=== PATIENT | male | born 1960 | race Caucasian/White ===

== ENCOUNTER 2017-01-10 16:24 | Emergency (ER) | payer SELFPAY ==
[~2017-01-10] VITALS: Ht 165.1 cm; Wt 77.0 kg
[2017-01-10 16:25] VITALS: BP 153/72; PULSE 77; RESP 15; TEMP 98.1; O2SAT 99
--- NOTE | 2017-01-10 16:47 | PD ---
HPI Chief Complaint: Psychiatric Symptoms Time Seen by Provider: 16:45 Travel History International Travel<30 days: No Contact w/Intl Traveler<30days: No Traveled to known affect area: No History of Present Illness HPI 56-year-old male presents to the emergency Department voluntarily for psychiatric evaluation. Patient states he has been feeling more and more depressed recently. He states that he is feeling suicidal. His plan is to jump out front of a car. He states he has similar feelings last year with a similar plan. He does state that he uses opiates that he buys off the street. He used Dilaudid this morning. He denies any attempt to kill himself at this time. Patient states he occasionally uses alcohol, but not daily. He denies any medical complaints at this time. [facility], [facility] Social History Alcohol Use: Yes Tobacco Use: Yes Substance Use: Yes (pills off street, used Dilaudid this AM) Allergies-Medications (Allergen,Severity, Reaction): Coded Allergies: No Known Allergies (Unverified , 01/10/17) Reported Meds & Prescriptions Reported Meds & Active Scripts Active No Active Prescriptions or Reported Medications Review of Systems Except as stated in HPI: all other systems reviewed are Neg Physical Exam Narrative GENERAL: Well-nourished, well-developed male patient, ambulatory. Afebrile. SKIN: Focused skin assessment warm/dry. HEAD: Normocephalic. Atraumatic. EYES: No scleral icterus. No injection or drainage. NECK: Supple, trachea midline. No JVD or lymphadenopathy. CARDIOVASCULAR: Regular rate and rhythm without murmurs, gallops, or rubs. RESPIRATORY: Breath sounds equal bilaterally. No accessory muscle use. Lungs sounds are clear to auscultation. GASTROINTESTINAL: Abdomen soft, non-tender, nondistended. MUSCULOSKELETAL: No cyanosis, or edema. PSYCHIATRIC: No delusional thought processes. No hallucinations. Data Data Last Documented VS Vital Signs Date Time Temp Pulse Resp B/P Pulse Ox O2 Delivery O2 Flow Rate FiO2 01/10/17 16:42 18 01/10/17 16:25 98.1 77 153/72 99 Orders Complete Blood Count With Diff (01/10/17 16:39) Comprehensive Metabolic Panel (01/10/17 16:39) Psych Screen (01/10/17 16:39) Drug Screen, Random Urine (01/10/17 16:39) Alcohol (Ethanol) (01/10/17 16:39) Salicylates (Aspirin) (01/10/17 16:39) Tylenol (Acetaminophen) (01/10/17 16:39) Labs Laboratory Tests Test 01/10/17 01/10/17 01/10/17 16:40 16:50 17:11 White Blood Count 4.8 TH/MM3 Red Blood Count 4.28 MIL/MM3 Hemoglobin 13.9 GM/DL Hematocrit 40.8 % Mean Corpuscular Volume 95.4 FL Mean Corpuscular Hemoglobin 32.5 PG Mean Corpuscular Hemoglobin 34.1 % Concent Red Cell Distribution Width 12.9 % Platelet Count 80 TH/MM3 Mean Platelet Volume 10.9 FL Neutrophils (%) (Auto) 70.5 % Lymphocytes (%) (Auto) 19.0 % Monocytes (%) (Auto) 8.6 % Eosinophils (%) (Auto) 1.3 % Basophils (%) (Auto) 0.6 % Neutrophils # (Auto) 3.4 TH/MM3 Lymphocytes # (Auto) 0.9 TH/MM3 Monocytes # (Auto) 0.4 TH/MM3 Eosinophils # (Auto) 0.1 TH/MM3 Basophils # (Auto) 0.0 TH/MM3 CBC Comment AUTO DIFF Differential Comment AUTO DIFF CONFIRMED Platelet Estimate LOW Platelet Morphology Comment ENLARGED Red Cell Morphology Comment NORMAL Sodium Level 132 MEQ/L Potassium Level 4.1 MEQ/L Chloride Level 97 MEQ/L Carbon Dioxide Level 28.8 MEQ/L Anion Gap 6 MEQ/L Blood Urea Nitrogen 11 MG/DL Creatinine 0.93 MG/DL Estimat Glomerular Filtration 85 ML/MIN Rate Random Glucose 92 MG/DL Calcium Level 8.8 MG/DL Total Bilirubin 0.9 MG/DL Aspartate Amino Transf 82 U/L (AST/SGOT) Alanine Aminotransferase 84 U/L (ALT/SGPT) Alkaline Phosphatase 126 U/L Total Protein 8.3 GM/DL Albumin 3.5 GM/DL Acetaminophen Level LESS THAN 2.0 MCG/ML Ethyl Alcohol Level 38 MG/DL Salicylates Level LESS THAN 1.7 MG/DL Urine Opiates Screen POS Urine Barbiturates Screen NEG Urine Amphetamines Screen NEG Urine Benzodiazepines Screen NEG Urine Cocaine Screen NEG Urine Cannabinoids Screen NEG MDM Medical Decision Making Medical Screen Exam Complete: Yes Emergency Medical Condition: Yes Medical Record Reviewed: Yes Differential Diagnosis Depression versus anxiety versus substance abuse versus suicidal ideation Narrative Course 56-year-old male presents to the emergency department for psychiatric evaluation stating that he is depressed and suicidal. He states this plan is to jump in front of a car. He has no medical complaints at this time. CBC, CMP , alcohol level, urine drug screen, salicylate level, Tylenol level are ordered and pending. Patient is placed under a Goldstein Act for suicidal ideation with plan. CBC shows low platelets at 80. CMP shows elevated liver enzymes, AST 82, ALT 84 , alkaline phosphatase 126. UDS is positive for opiates. Salicylate level is less than 1.7. Tylenol level is less than 2.0. Alcohol level is 38. Patient is medically cleared for psychiatric screening and disposition. Mental health screening discussed with the patient. Psychiatric screen ordered. Diagnosis Primary Impression: Depression Qualified Code: F32.9 - Depression, unspecified depression type Additional Impressions: Suicidal ideation Opiate abuse, continuous Additional Instructions: Patient is medically cleared for psychiatric screening and disposition. Scripts No Active Prescriptions or Reported Meds Condition: Tish Avila January 10, 2017 16:47
[2017-01-10 17:01] LABS: AUTOMATED NEUTROPHIL # 3.4 TH/MM3 (1.8-7.7); BASOPHIL % 0.6 % (0.0-2.0); EOSINOPHIL # 0.1 TH/MM3 (0-0.4); EOSINOPHIL % 1.3 % (0.0-4.0); HEMATOCRIT 40.8 % (39.0-51.0); LYMPHOCYTE # 0.9 TH/MM3 (1.0-4.8); MEAN CELL VOLUME 95.4 FL (80.0-100.0); MEAN CORPUSCULAR HEMOGLOBIN 32.5 PG (27.0-34.0); MEAN CORPUSCULAR HGB CONC 34.1 % (32.0-36.0); MONO % 8.6 % (0.0-8.0); NEUT % 70.5 % (16.0-70.0); PLATELET COUNT 80 TH/MM3 (150-450); RED BLOOD COUNT 4.28 MIL/MM3 (4.50-5.90); RED CELL DISTRIBUTION WIDTH 12.9 % (11.6-17.2); WHITE BLOOD COUNT 4.8 TH/MM3 (4.0-11.0)
[2017-01-10 17:07] LABS: HEMO FLAGS AUTO DIFF
[2017-01-10 17:22] LABS: ALT (GPT) 84 U/L (12-78); ANION GAP 6 MEQ/L (5-15); AST (GOT) 82 U/L (15-37); BICARBONATE 28.8 MEQ/L (21.0-32.0); BLOOD UREA NITROGEN 11 MG/DL (7-18); CHLORIDE 97 MEQ/L (98-107); GLOMERULAR FILTRATION RATE 85 ML/MIN (>89); POTASSIUM 4.1 MEQ/L (3.5-5.1); SODIUM (NA) 132 MEQ/L (136-145)
[2017-01-10 17:24] LABS: ALKALINE PHOSPHATASE 126 U/L (45-117); TOTAL BILIRUBIN ADULT 0.9 MG/DL (0.2-1.0)
[2017-01-10 17:25] LABS: PLATELET ESTIMATE SMEAR LOW (NORMAL); PLATELET MORPHOLOGY ENLARGED (NORMAL); SCAN/DIFF AUTO DIFF CONFIRMED
[2017-01-10 17:32] LABS: ACETAMINOPHEN LESS THAN 2.0 MCG/ML (10.0-30.0)
[2017-01-10 17:35] LABS: AMPHETAMINE, URINE NEG (NEG); BARBITURATES, URINE NEG (NEG); COCAINE, URINE NEG (NEG)
[2017-01-10 19:04] VITALS: BP 123/70; PULSE 70; RESP 18; O2SAT 98
[2017-01-10 23:17] VITALS: BP 140/76; PULSE 72; RESP 18; O2SAT 98
[2017-01-11 02:00] VITALS: BP 125/69; PULSE 65; RESP 17; O2SAT 99
[2017-01-11 10:25] VITALS: BP 139/74; PULSE 68; RESP 18
[2017-01-11] MEDS: ACETAMINOPHEN 500 MG CPLT PO ONE ×2 (13:59→14:55)
--- NOTE | 2017-01-11 16:35 | PD ---
History of Present Illness Chief Complaint: Psychiatric Symptoms Time Seen by Provider: 16:00 Travel History International Travel<30 Days: No Contact w/Intl Traveler<30days: No Known affected area: No Legal Status Legal Status: Goldstein Act Goldstein Act Signed By: DR PHOENIX History of Present Illness: 56-year-old gentleman who "fell off the wagon" approximately one week ago. Has a history of opiate abuse and began buying Dilaudid-HP on the street and using it. At this time the patient firmly denies that he truly wants to harm himself and admits that he did this as a manipulation to get treatment. Patient feels guilty about using opiates again and would like detox and rehabilitation. This physician does not find that he meets Goldstein act criteria and this facility is not a licensed detox/rehabilitation facility. This physician spoke with emergency department staff and psychiatry of sales office administrator Jose Zendejas. Patient 's Goldstein act is being lifted and he will be sent to [facility] tomorrow for possible admission and treatment. Patient is noted to have a mildly diminished platelet count but ED staff indicate it is not low enough to require transfusion. Finally, patient was Goldstein acted by Dr. Phoenix in [facility] without a psych screen. This physician does not find the Goldstein act criteria are appropriate as the patient voluntarily wants assistance with his drug abuse. PFSH Past Medical History Medical History: Denies Significant Hx Psychiatric History Psychiatric History Hx Psychiatric Treatment: HX OF DEPRESSION significant history of substance abuse. History of Inpatient Treatment: Yes Social History Hx Alcohol Use: Yes Hx Tobacco Use: Yes Hx Substance Use: Yes Substance Use Type: Alcohol, Marijuana, Nicotine/Cigarettes, Prescription Medications, Benzos (Valium,Xanax), Heroin, Cocaine, Huffing, Synth Opiates- Pain Pills Other Substances Used: IV DILAUDID Hx of Substance Use Treatment: Yes Allergies-Medications (Allergen,Severity, Reaction): Coded Allergies: No Known Allergies (Unverified , 01/10/17) Reported Meds & Prescriptions Reported Meds & Active Scripts Active No Active Prescriptions or Reported Medications Review of Systems Except as stated in HPI: all other systems reviewed are Neg Exam Alert: Yes [place]: Person, Place, Date, Situation Mood: Calm Affect: Appropriate, Euthymic Speech: Clear, Logical Eye Contact: Normal Memory Intact: Immediate, Recent, Remote Insight/Judgement Adequate except when it comes to drugs. MDM Medical Decision Making Medical Record Reviewed: Yes Assessment/Plan Discharge in a.m. to [facility]. Orders Complete Blood Count With Diff (01/10/17 16:39) Comprehensive Metabolic Panel (01/10/17 16:39) Psych Screen (01/10/17 16:39) Drug Screen, Random Urine (01/10/17 16:39) Alcohol (Ethanol) (01/10/17 16:39) Salicylates (Aspirin) (01/10/17 16:39) Tylenol (Acetaminophen) (01/10/17 16:39) Diet Regular Basic (01/11/17 Breakfast) Diet Regular Basic (01/11/17 Lunch) Acetaminophen (Tylenol) (01/11/17 13:45) Results Vital Signs Date Time Temp Pulse Resp B/P Pulse Ox O2 Delivery O2 Flow Rate FiO2 01/11/17 10:25 68 18 139/74 Room Air 01/11/17 02:00 65 17 125/69 99 Room Air 01/10/17 23:17 72 18 140/76 98 01/10/17 19:04 70 18 123/70 98 Room Air 01/10/17 16:42 18 Laboratory Tests Test 01/10/17 01/10/17 01/10/17 16:40 16:50 17:11 White Blood Count 4.8 Red Blood Count 4.28 Hemoglobin 13.9 Hematocrit 40.8 Mean Corpuscular Volume 95.4 Mean Corpuscular Hemoglobin 32.5 Mean Corpuscular Hemoglobin 34.1 Concent Red Cell Distribution Width 12.9 Platelet Count 80 Mean Platelet Volume 10.9 Neutrophils (%) (Auto) 70.5 Lymphocytes (%) (Auto) 19.0 Monocytes (%) (Auto) 8.6 Eosinophils (%) (Auto) 1.3 Basophils (%) (Auto) 0.6 Neutrophils # (Auto) 3.4 Lymphocytes # (Auto) 0.9 Monocytes # (Auto) 0.4 Eosinophils # (Auto) 0.1 Basophils # (Auto) 0.0 CBC Comment AUTO DIFF Differential Comment AUTO DIFF CONFIRMED Platelet Estimate LOW Platelet Morphology Comment ENLARGED Red Cell Morphology Comment NORMAL Sodium Level 132 Potassium Level 4.1 Chloride Level 97 Carbon Dioxide Level 28.8 Anion Gap 6 Blood Urea Nitrogen 11 Creatinine 0.93 Estimat Glomerular Filtration 85 Rate Random Glucose 92 Calcium Level 8.8 Total Bilirubin 0.9 Aspartate Amino Transf 82 (AST/SGOT) Alanine Aminotransferase 84 (ALT/SGPT) Alkaline Phosphatase 126 Total Protein 8.3 Albumin 3.5 Acetaminophen Level LESS THAN 2.0 Ethyl Alcohol Level 38 Salicylates Level LESS THAN 1.7 Urine Opiates Screen POS Urine Barbiturates Screen NEG Urine Amphetamines Screen NEG Urine Benzodiazepines Screen NEG Urine Cocaine Screen NEG Urine Cannabinoids Screen NEG Diagnosis Primary Impression: Opiate abuse, continuous Additional Impression: Suicidal ideation Additional Instructions: Patient is medically cleared for psychiatric screening and disposition. Prescriptions No Active Prescriptions or Reported Meds Condition: Stable Problem Qualifiers Javier Gaxiola MD January 11, 2017 16:35
[2017-01-11 22:00] VITALS: BP 127/86; PULSE 61; RESP 17; O2SAT 96
[2017-01-12] MEDS ORDERED: diphenhydrAMINE HCL 50 MG CAP PO ONE (01:15)
[2017-01-12 02:19] VITALS: BP 132/69; PULSE 61; RESP 17; O2SAT 99
[2017-01-12 06:00] VITALS: BP 115/68; PULSE 67; RESP 18; O2SAT 98
== END 2017-01-12 09:16 ==
LOC: NEPC 16:24 → NEPJ 01-12 09:16
DX: F11.10 Opioid abuse, uncomplicated (principal); F32.9 Major depressive disorder, single episode, unspecified; R74.8 Abnormal levels of other serum enzymes; D69.6 Thrombocytopenia, unspecified; Z72.0 Tobacco use
CPT/HCPCS: 80053; 80307; 85025; 99285; Q0163

== ENCOUNTER 2017-08-27 12:29 | Emergency (ER) | payer SELFPAY ==
[~2017-08-27] VITALS: Ht 167.6 cm; Wt 81.5 kg
[2017-08-27 12:31] VITALS: BP 143/81; PULSE 68; RESP 16; TEMP 98.6; O2SAT 99
--- NOTE | 2017-08-27 13:30 | PD ---
HPI Chief Complaint: Headache Time Seen by Provider: 13:17 Travel History International Travel<30 days: No Contact w/Intl Traveler<30days: No Traveled to known affect area: No History of Present Illness HPI 57-year-old male presents to emergency Department with complaint of traumatic bilateral frontal headache 2 weeks. Denies history of headaches. Has been gradual onset. Denies confusion, disorientation, change in mentation, slurred speech, focal deficits or weakness. Denies nasal congestion, ear pain, cough, sore throat. No fevers, vomiting. Rates the headache as a pressure. Takes Advil with relief of headache. Took Advil prior to arrival. Headache was 8/10 prior to taking Advil. Headache now is 4/10. No known aggravating factors. No established primary care provider. No known allergies. Has no other medical complaints. No modifying factors or associated signs and symptoms. PFSH Past Medical History Medical History: Denies Significant Hx Diminished Hearing: No Past Surgical History Surgical History: No Previous Surgery Social History Alcohol Use: No Tobacco Use: Yes Substance Use: No (CLEAN FROM IVDU FOR 7 MTHS) Allergies-Medications (Allergen,Severity, Reaction): Coded Allergies: No Known Allergies (Unverified Adverse Reaction, Unknown, 08/27/17) Reported Meds & Prescriptions Reported Meds & Active Scripts Active No Active Prescriptions or Reported Medications Review of Systems Except as stated in HPI: all other systems reviewed are Neg Physical Exam Narrative GENERAL: Well-nourished, well-developed male patient, in no acute distress SKIN: Warm and dry. HEAD: Atraumatic. Normocephalic. No Facial droop noted. Tongue midline. Finger to nose test normal. EYES: Pupils equal and round at 4 mm with brisk reaction. No scleral icterus. No injection or drainage. PERRLA. EOMI. ENT: Mucosa pink and moist. Airway patent. NECK: Trachea midline. No lymphadenopathy. CARDIOVASCULAR: Regular rate. RESPIRATORY: No accessory muscle use. GASTROINTESTINAL: Flat. MUSCULOSKELETAL: No obvious deformities. No clubbing. No cyanosis. No edema. NEUROLOGICAL: Awake and alert. Oriented 4. No obvious cranial nerve deficits. Motor grossly within normal limits. Normal speech. No ataxia. No mid -line drift. Upper or lower extremity drift. Moves all extremities. 5/5 strength to all extremities. PSYCHIATRIC: Appropriate mood and affect; insight and judgment normal. Data Data Last Documented VS Vital Signs Date Time Temp Pulse Resp B/P (MAP) Pulse Ox O2 Delivery O2 Flow Rate FiO2 08/27/17 12:31 98.6 68 16 143/81 (101) 99 Room Air Orders Orders Ct Brain W/O Iv Contrast(Rout) (08/27/17 ) MDM Medical Decision Making Medical Screen Exam Complete: Yes Emergency Medical Condition: Yes Medical Record Reviewed: Yes Differential Diagnosis Sinus headache, ocular headache, tension headache, tumor Narrative Course 57-year-old male with headaches for the past 2 weeks. Denies history of headaches. Neuro exam is unremarkable. Headache is relieved with ibuprofen. Patient took ibuprofen prior to arrival and headache went from [address] head ordered. 1517: CT head concludes: Head CT 08/27/17 0000 Signed Impressions: Service Date/Time: Wednesday, August 27, 2017 14:41 - CONCLUSION: Negative noncontrast CT Stephen Cox MD CT results discussed with the patient. Ibuprofen prescribed for home. Instructed patient to follow up with primary care provider. Patient verbalizes understanding and agreement with treatment plan. Patient is medically cleared and stable for discharge. Discussed reasons to return to the emergency department. Patient agrees with treatment plan. The patients vital signs are stable and the patient is stable for outpatient follow-up and treatment. Patient discharged home, stable and in no acute distress. Diagnosis Primary Impression: Headache Qualified Codes: R51 - Headache Referrals: [facility] Primary Care Physician Patient Instructions: Acute Headache (ED), General Headache (ED), General Instructions, Tension Headache (ED) Additional Instructions: Ibuprofen or Tylenol as directed and as needed to reduce headache Get plenty of rest: do not over sleep rest and relax in a dark, quiet room as needed Place an ice pack on the back of her neck to reduce head pain as needed Keep a headache diary of what triggers her headaches and what treatment is most effective Avoid identifiable triggers Avoid smoking, alcohol and caffeine consumption Reduce stress Follow-up with primary care provider within 1-2 days Follow-up with neurology as needed Return immediately to the emergency department with worsening symptoms Med/Other Pt SpecificInfo: Prescription(s) given Scripts Ibuprofen (Ibuprofen) 800 Mg Tab 800 MG PO Q6HR Y for PAIN, #30 TAB 0 Refills Prov: Taylor Uribe 08/27/17 Disposition: 01 DISCHARGE HOME Condition: Stable Taylor Uribe Aug 27, 2017 13:30
--- NOTE | 2017-08-27 15:00 | RADRPT ---
EXAM DATE/TIME: 08/27/2017 14:41 [facility] COMPARISON: No previous studies available for comparison. INDICATIONS : Intermittent headaches. RADIATION DOSE: 56.35 CTDIvol (mGy) MEDICAL HISTORY : None SURGICAL HISTORY : None. ENCOUNTER: Initial ACUITY: 3 days PAIN SCALE: 6/10 LOCATION: frontal head TECHNIQUE: Multiple contiguous axial images were obtained of the head. Using automated exposure control and adj ustment of the mA and/or kV according to patient size, radiation dose was kept as low as reasonably a chievable to obtain optimal diagnostic quality images. DICOM format image data is available electro nically for review and comparison. FINDINGS: CEREBRUM: The ventricles are normal for age. No evidence of midline shift, mass lesion, hemorrhage or acute in farction. No extra-axial fluid collections are seen. POSTERIOR FOSSA: The cerebellum and brainstem are intact. The 4th ventricle is midline. The cerebellopontine angle i s unremarkable. EXTRACRANIAL: The visualized portion of the orbits is intact. SKULL: The calvaria is intact. No evidence of skull fracture. CONCLUSION: Negative noncontrast CT Stephen Cox MD on August 27, 2017 at 14:57 Board Certified Radiologist. This report was verified electronically.
[2017-08-27] MEDS ORDERED: IBUP1TAB7 PO (15:19)
== END 2017-08-27 15:34 | disposition home or self-care (01) ==
LOC: NEPD 12:29
DX: R51 Headache (principal); Z72.0 Tobacco use
CPT/HCPCS: 70450; 99284